=== PATIENT | female | born 1990 | race Two or more races ===

== ENCOUNTER 2018-02-10 03:39 | Emergency (ER) | payer MEDICAID ==
[~2018-02-10] VITALS: Ht 160 cm; Wt 68.0 kg
[2018-02-10 03:48] VITALS: BP 157/94
== END 2018-02-10 06:10 | disposition left against medical advice (07) ==
LOC: ER 03:39
DX: R51 Headache (principal); Z53.21 Procedure and treatment not carried out due to patient leaving prior to being seen by health care provider